=== PATIENT | male | born 1970 | race Two or more races ===

== ENCOUNTER 2021-02-21 03:14 | Emergency (ER) | payer BC ==
[~2021-02-21] VITALS: Ht 172.7 cm; Wt 83.9 kg
[2021-02-21] MEDS ORDERED: ALLOPURINOL100 MG (03:31)
[2021-02-21] MEDS ORDERED: BYSTOLIC2.5 MG (03:31)
[2021-02-21] MEDS ORDERED: POTASS CIT-SOD473 ML (03:32)
[2021-02-21] MEDS ORDERED: TAMS0.4C (03:32)
== END 2021-02-21 10:14 | disposition home or self-care (01) ==
LOC: ER 03:14
DX: N20.1 Calculus of ureter (principal); R10.32 Left lower quadrant pain